=== PATIENT | male | born 1970 ===

== ENCOUNTER 2021-03-23 06:27 | Outpatient (CLI) | payer BC ==
--- NOTE | 2021-03-23 10:25 | Magnetic Resonance Report ---
MRI LEFT HAND WITHOUT CONTRAST INDICATION / CLINICAL INFORMATION: LOCALIZED SWELLING MASS AND LUMP LEFT UPPER LIMB, PAIN. TECHNIQUE: Multiplanar, multisequence MR images were obtained. COMPARISON: None available. FINDINGS: FLEXOR TENDONS: No significant abnormality. EXTENSOR TENDONS: No significant abnormality. LIGAMENTS: No significant abnormality. BONES: No significant bone marrow edema. No fracture. No osseous lesion. JOINT SPACES: No significant arthritis. No significant joint effusion or synovitis. MUSCLES: No significant abnormality. SOFT TISSUES: Along the palmar aspect of the proximal phalanx of the left middle finger, there is a t rilobed cyst adjacent to the flexor tendon. The largest component of this cyst measures 7 x 5 x 7 mm along the ulnar aspect of the flexor tendon as seen on axial STIR image 23 and coronal STIR image 11. . ADDITIONAL FINDINGS: None. IMPRESSION: 1. Small, trilobed, ganglion cyst along the palmar aspect of the proximal phalanx of the left middle finger. Signer Name: Enriqueta Merrill MD Signed: 03/23/2021 10:21 AM Workstation Name: [id number]
== END 2021-03-23 06:28 | disposition home or self-care (01) ==
LOC: MRI 06:27
PROVIDERS: ATTEND Orthopaedic Surgery
DX: M67.442 Ganglion, left hand (principal); R22.32 Localized swelling, mass and lump, left upper limb

== ENCOUNTER 2021-05-18 08:40 | Day surgery (SDC) | payer BC ==
[~2021-05-18 08:40] MED LIST: ACETAMINOPHEN 500 MG TAB PO SCH; BUPIVACAINE/PF (0.5%) 5 MG/1 ML 10 ML VIAL INFILTRATI ONE; LACTATED RINGERS 1,000 ML IV SCH; MIDAZOLAM 2 MG/2 ML INJ IV NR; SODIUM CHLORIDE 0.9% IRR 1,500 ML BOTTLE IR ONE; ceFAZolin/STERILE WATER 2 GM/20 ML SYRINGE IV NR
[2021-05-18] MEDS ORDERED: ONDANSETRON 4 MG/2 ML INJ IV PRN (10:04)
[2021-05-18] MEDS ORDERED: HYDROmorphone 1 MG/1 ML INJ IV PRN (10:04)
[2021-05-18] MEDS ORDERED: HYDROcodone/ACETAMINOPHEN 5-325 MG TAB PO PRN (10:04)
--- NOTE | 2021-05-18 10:04 | Anesthesia Day of Surgery ---
Anesthesia Day of Surgery - Day of Surgery Patient Examined: Yes Patient H&P Reviewed: Yes Patient is NPO: Yes
--- NOTE | 2021-05-18 10:04 | Anesthesia Consultation ---
Anesthesia Consult and Med Hx Date of service: 05/18/21 - Airway Anesthetic Teeth Evaluation: Good ROM Head & Neck: Adequate Mental/Hyoid Distance: Adequate Mallampati Class: Class II Intubation Access Assessment: Probably Good - Pulmonary Exam CTA: Yes (good air entry throughout; no wheezing or rhonchi) - Cardiac Exam Cardiac Exam: RRR - Pre-Operative Health Status ASA Pre-Surgery Classification: ASA2 Proposed Anesthetic Plan: General - Pulmonary Hx Smoking: No Hx Asthma: No Hx Respiratory Symptoms: Yes (occasional productive cough without associated symptoms) SOB: No Home Oxygen Therapy: No - Cardiovascular System Hx Hypertension: No - Central Nervous System CVA: No - Endocrine Hx Renal Disease: No Hx Liver Disease: No Hx Insulin Dependent Diabetes: No Hx Non-Insulin Dependent Diabetes: No Hx Thyroid Disease: No - Other Systems Hx Obesity: Yes (BMI 38) - Additional Comments Anesthesia Medical History Comments: No hx anesthetic complications.
[2021-05-18] MEDS ORDERED: BUPIVACAINE/PF (0.5%) 5 MG/1 ML 10 ML VIAL INFILTRATI ONE ×2 (10:43→11:48)
[2021-05-18] MEDS ORDERED: LIDOCAINE MPF (2%) 20 MG/1 ML VIAL 5 ML ONE (10:44)
[2021-05-18] MEDS ORDERED: propofoL 200 MG/20 ML VIAL IV ONE (10:45)
[2021-05-18] MEDS ORDERED: fentaNYL 100 MCG/2 ML INJ ONE (10:46)
[2021-05-18] MEDS ORDERED: ONDANSETRON 4 MG/2 ML INJ ONE (10:49)
[2021-05-18] MEDS ORDERED: ALBUTEROL 2.5 MG/3 ML NEBU IH ONE (11:05)
[2021-05-18] MEDS ORDERED: SODIUM CHLORIDE 0.9% IRR 1,500 ML BOTTLE IR ONE (11:51)
--- NOTE | 2021-05-18 12:41 | Procedure Note ---
Date of procedure: 05/18/21 Pre-op diagnosis: Mass left thumb Post-op diagnosis: same Procedure: Excisional biopsy left thumb Procedure The patient was brought to the OR and placed on the OR table in the supine position following induction with general anesthesia the patient's left upper extremity was prepped and draped in the usual sterile manner. A timeout procedure was done to identify the patient and the correct operative site. The arm was exsanguinated followed by inflation of the pneumatic tourniquet to 250 mmHg utilizing a bayonet type incision centered over the volar surface of the metacarpal phalangeal joint this was then taken down sharply through skin and subcu the mass was encountered and appeared to be consistent with lipoma tracing the mass back to its origin it appeared to emanate from the thenar eminence and progressed distally across the metacarpal phalangeal joint and into the proximal aspect of the proximal phalanx the mass was shelled out in 1 piece and given to our scrub nurse and will be sent to pathology for diagnosis. Next the wound was then copiously irrigated and was closed in a standard routine fashion postop dressings were applied patient tolerated procedure and there were no complications Anesthesia: MAC, regional Surgeon: THELMA LUNDBERG (Ashok Fuentes, 1st assist) Estimated blood loss: minimal Pathology: list (Soft tissue mass left thumb) Specimen disposition: to lab Condition: stable Disposition: PACU
--- NOTE | 2021-05-18 13:44 | Post Anesthesia Evaluation ---
- Post Anesthesia Evaluation Patient Participated: Yes Airway Patent: Yes Stable Respiratory Function: Yes Nausea/Vomiting: No Temp > 96.8F: Yes Pain Manageable: Yes Adequeate Hydration: Yes Anesthesia Complications: No
[2021-05-18 18:19] VITALS: BP 128/68
== END 2021-05-18 08:41 | disposition home or self-care (01) ==
LOC: OR 08:40
PROVIDERS: ATTEND Orthopaedic Surgery
DX: R22.32 Localized swelling, mass and lump, left upper limb (principal); M79.642 Pain in left hand; E66.9 Obesity, unspecified; Z79.899 Other long term (current) drug therapy; Z98.890 Other specified postprocedural states; Z20.822 Contact with and (suspected) exposure to COVID-19
CPT/HCPCS: 26111; 88304; J0690; J2405; J2704; J3010; J3490; J7120; U0003; 88307; J2250